=== PATIENT | female | born 1975 | race African-American/Black ===

== ENCOUNTER 2016-11-02 13:12 | Emergency (ER) | payer MEDICAID ==
[~2016-11-02] VITALS: Ht 170.2 cm; Wt 131.5 kg
[~2016-11-02 13:12] MED LIST: ALPR1TAB2 PO; DULO60CA45 PO; HUM10VIA5 SQ; LIRA0.6P SQ; LOSA100T3 PO; OXYC-164 PO; TOPI50TA PO
--- NOTE | 2016-11-02 13:23 | NUR ---
Presents self to ed dt vaginal bleeding x 10 days. Patient also reported lower abdominal discomfort. Patient is aao4, appears in no apparent distrress, respiration even and unlabored. Skin is warm to touch and non diaphoretic. Patient is afebrile. Per patient she uses 3-10 pads per day. VSsds
--- NOTE | 2016-11-02 13:44 | NUR ---
Urine sample sent to lab
[2016-11-02 13:51] LABS: BASOPHILS # (AUTO) 0.1 /CMM (0.0-0.2); BASOPHILS % (AUTO) 0.6 % (0.0-2.0); EOSINOPHILS # (AUTO) 0.2 /CMM (0.0-0.7); EOSINOPHILS % (AUTO) 1.7 % (0.0-6.0); HEMATOCRIT 38 % (33-45); HEMOGLOBIN 12.7 g/dL (11.5-14.8); LYMPHOCYTES % (AUTO) 31.4 % (20.0-44.0); MEAN CORPUSCULAR HEMOGLOBIN 27 PG (26.0-33.0); MEAN CORPUSCULAR HGB CONC 33 g/dl (31.0-36.0); MEAN CORPUSCULAR VOLUME 81 fL (82-100); MONOCYTES # (AUTO) 0.5 /CMM (0.1-1.30); MONOCYTES % (AUTO) 4.9 % (2.0-12.0); NEUTROPHILS # (AUTO) 5.9 /CMM (1.8-8.9); NEUTROPHILS % (AUTO) 61.4 % (43.0-81.0); PLATELET COUNT (AUTO) 320 /CMM (150-450); RDW COEFFICIENT OF VARIATION 15.8 (11.5-15.0); RED BLOOD CELL COUNT(AUTO) 4.68 MIL/uL (4.0-5.2); WHITE BLOOD COUNT (AUTO) 9.6 K/uL (4.3-11.0)
[2016-11-02 14:14] VITALS: BP 154/100
[2016-11-02 14:24] LABS: APPEARANCE,URINE CLOUDY (CLEAR); BILIRUBIN,URINE NEGATIVE (NEGATIVE); BLOOD, URINE 3+ Ery/uL (NEGATIVE); COLOR,URINE RED (YELLOW); KETONES,URINE NEGATIVE (NEGATIVE); LEUKOCYTE ESTERASE ,URINE NEGATIVE (NEGATIVE); NITRITE, URINE NEGATIVE (NEGATIVE); PH,URINE 5.5 (5.0-8.0); PREGNANCY TEST URINE QUAL NEGATIVE (NEGATIVE); PROTEIN,URINE 2+ mg/dl (NEGATIVE); UGLUCOSE NEGATIVE (NEGATIVE); UROBILINOGEN,URINE 0.2 EU/dL (0.2)
[2016-11-02 14:25] LABS: BACTERIA,URINE None seen /HPF (None Seen); RBC,URINE TOO NUMEROUS TO COUN /HPF (0-2); SQUAMOUS EPITHELIAL CELL,UR Few /HPF (None Seen); WBC,URINE 0-2 /HPF (0-3)
== END 2016-11-02 14:16 | disposition home or self-care (01) ==
LOC: ER 13:14
DX: N92.0 Excessive and frequent menstruation with regular cycle (principal); I10 Essential (primary) hypertension; E11.9 Type 2 diabetes mellitus without complications; F41.9 Anxiety disorder, unspecified; M79.7 Fibromyalgia; Z79.4 Long term (current) use of insulin; D50.0 Iron deficiency anemia secondary to blood loss (chronic); Z90.49 Acquired absence of other specified parts of digestive tract; Z88.1 Allergy status to other antibiotic agents; D21.9 Benign neoplasm of connective and other soft tissue, unspecified
CPT/HCPCS: 36415; 81000-TC; 84703-TC; 85025-TC; A4606; Z7610

== ENCOUNTER → 2018-01-22 | Emergency (ER) | payer MEDICAID ==
[~2018-01-22] VITALS: Ht 177.8 cm; Wt 140.6 kg
[~2018-01-22] MED LIST changes: +HYDROCODONE/APAP 5/325MG 1 EACH TABLET ONE; +HYDROCODONE/APAP 5/325MG 1 EACH TABLET PO ONE; +ONDANSETRON 4 MG TAB.RAPDIS ONE; +ONDANSETRON 4 MG TAB.RAPDIS SL ONE; -OXYC-164 PO; +OXYC-454 PO; +POTASSIUM CHLORIDE 20 MEQ TAB.PRT.SR PO ONE
[2018-01-22 11:45] VITALS: BP 155/97
[2018-01-22 12:30] LABS: BASOPHILS # (AUTO) 0.2 /CMM (0.0-0.2); BASOPHILS % (AUTO) 2.4 % (0.0-2.0); EOSINOPHILS % (AUTO) 3.4 % (0.0-6.0); HEMATOCRIT 37 % (33-45); HEMOGLOBIN 12.1 g/dL (11.5-14.8); LYMPHOCYTES # (AUTO) 3.4 /CMM (0.8-4.8); LYMPHOCYTES % (AUTO) 32.7 % (20.0-44.0); MEAN CORPUSCULAR HEMOGLOBIN 25 PG (26.0-33.0); MEAN CORPUSCULAR HGB CONC 32 g/dl (31.0-36.0); MEAN CORPUSCULAR VOLUME 79 fL (82-100); MONOCYTES # (AUTO) 0.5 /CMM (0.1-1.30); MONOCYTES % (AUTO) 5.1 % (2.0-12.0); NEUTROPHILS # (AUTO) 5.9 /CMM (1.8-8.9); NEUTROPHILS % (AUTO) 56.4 % (43.0-81.0); PLATELET COUNT (AUTO) 348 /CMM (150-450); RDW COEFFICIENT OF VARIATION 16.6 (11.5-15.0); RED BLOOD CELL COUNT(AUTO) 4.74 MIL/uL (4.0-5.2); WHITE BLOOD COUNT (AUTO) 10.4 K/uL (4.3-11.0)
[2018-01-22 12:32] LABS: APPEARANCE,URINE HAZY (CLEAR); BILIRUBIN,URINE Negative (NEGATIVE); BLOOD, URINE Trace-intact Ery/uL (NEGATIVE); COLOR,URINE Yellow (YELLOW); KETONES,URINE Trace (NEGATIVE); LEUKOCYTE ESTERASE ,URINE Small (NEGATIVE); NITRITE, URINE Negative (NEGATIVE); PH,URINE 5.5 (5.0-8.0); PROTEIN,URINE Trace mg/dl (NEGATIVE); UGLUCOSE 250 MG/DL mg/dL (NEGATIVE)
[2018-01-22 12:36] LABS: CALCIUM, SERUM 9.1 mg/dL (8.5-10.1); CREATININE 0.8 mg/dL (0.6-1.3); POTASSIUM 3.3 mmol/L (3.5-5.1)
[2018-01-22 12:37] LABS: BACTERIA,URINE Moderate /HPF (None Seen); RBC,URINE 0-2 /HPF (0-2)
[2018-01-22 12:38] LABS: SQUAMOUS EPITHELIAL CELL,UR Many /HPF (None Seen)
[2018-01-22 12:42] LABS: ALBUMIN 3.3 g/dL (3.4-5.0); BILIRUBIN,DIRECT 0.1 mg/dL (0.0-0.2); BILIRUBIN,TOTAL 0.3 mg/dL (0.2-1.0); TOTAL PROTEIN, SERUM 7.7 g/dL (6.4-8.2)
== END | disposition home or self-care (01) ==
LOC: ER 11:37
DX: R10.12 Left upper quadrant pain (principal); E66.01 Morbid (severe) obesity due to excess calories; E11.8 Type 2 diabetes mellitus with unspecified complications; F41.9 Anxiety disorder, unspecified; I10 Essential (primary) hypertension; E87.6 Hypokalemia; R74.8 Abnormal levels of other serum enzymes; D50.9 Iron deficiency anemia, unspecified; R11.2 Nausea with vomiting, unspecified; Z90.49 Acquired absence of other specified parts of digestive tract; Z79.4 Long term (current) use of insulin
CPT/HCPCS: 36415; 80048; 80076; 81001; 82962; 83690; 84703; 85025; 87086; 99284; A4606; Q0162; Z7610; 81000-TC

== ENCOUNTER 2019-04-04 12:35 | Emergency (ER) | payer MEDICAID ==
[~2019-04-04] VITALS: Ht 170.2 cm; Wt 136.1 kg
[~2019-04-04 12:35] MED LIST changes: -HYDROCODONE/APAP 5/325MG 1 EACH TABLET ONE; -HYDROCODONE/APAP 5/325MG 1 EACH TABLET PO ONE; -ONDANSETRON 4 MG TAB.RAPDIS ONE; -ONDANSETRON 4 MG TAB.RAPDIS SL ONE; -POTASSIUM CHLORIDE 20 MEQ TAB.PRT.SR PO ONE
[2019-04-04 12:41] VITALS: BP 176/105
--- NOTE | 2019-04-04 13:07 | NUR ---
VERONICA ZUÑIGA AT BEDSIDE FOR EVAL.
[2019-04-04] MEDS ORDERED: HYDROCODONE/APAP 10/325MG 1 EA TABLET ONE (13:20)
[2019-04-04] MEDS ORDERED: KETOROLAC TROMETHAMINE INJ 30 MG/ML VIAL ONE (13:20)
--- NOTE | 2019-04-04 13:23 | NUR ---
WE[employer] MARKETING MANAGER AT BEDSIDE FOR XRAY.
[2019-04-04] MEDS ORDERED: HYDROCODONE/APAP 10/325MG 1 EA TABLET PO ONE (13:30)
[2019-04-04] MEDS ORDERED: KETOROLAC TROMETHAMINE INJ 60 MG/2 ML VIAL IM ONE (13:30)
--- NOTE | 2019-04-04 15:05 | NUR ---
Patient discharged to home in stable condition. Written and verbal after care instructions given. Patient verbalizes understanding of instruction.
== END 2019-04-04 15:06 | disposition home or self-care (01) ==
LOC: ER 12:35
DX: M75.32 Calcific tendinitis of left shoulder (principal); M11.012 Hydroxyapatite deposition disease, left shoulder; M25.512 Pain in left shoulder; E11.9 Type 2 diabetes mellitus without complications; E66.01 Morbid (severe) obesity due to excess calories; I10 Essential (primary) hypertension; R42 Dizziness and giddiness; G47.30 Sleep apnea, unspecified; M79.7 Fibromyalgia; F41.9 Anxiety disorder, unspecified; D50.9 Iron deficiency anemia, unspecified; Z68.42 Body mass index [BMI] 45.0-49.9, adult; Z90.49 Acquired absence of other specified parts of digestive tract; Z98.890 Other specified postprocedural states; Z88.1 Allergy status to other antibiotic agents; Z79.899 Other long term (current) drug therapy
CPT/HCPCS: 73030; 96372; 99283; J1885

== ENCOUNTER 2019-04-11 08:43 | Emergency (ER) | payer MEDICAID ==
[~2019-04-11] VITALS: Ht 170.2 cm; Wt 138.3 kg
--- NOTE | 2019-04-11 08:55 | NUR ---
CHEST PAIN/PRESSURE, NAUSEA AND VOMITING SINCE 0500 . PRODUCTIVE COUGH X 2 MONTHS. PATIENT A/OX4, BREATHING EVEN AND UNLABORED, NO SOB NOTED. ATTACHED TO THE POLITICAL CARTOONIST.
[2019-04-11 09:19] LABS: BASOPHILS % (AUTO) 0.3 % (0.0-2.0); EOSINOPHILS % (AUTO) 1.4 % (0.0-6.0); HEMATOCRIT 35 % (33-45); HEMOGLOBIN 11.5 g/dL (11.5-14.8); LYMPHOCYTES # (AUTO) 2.5 /CMM (0.8-4.8); LYMPHOCYTES % (AUTO) 27.7 % (20.0-44.0); MEAN CORPUSCULAR HGB CONC 33 g/dl (31.0-36.0); MEAN CORPUSCULAR VOLUME 80 fL (82-100); MONOCYTES # (AUTO) 0.6 /CMM (0.1-1.30); MONOCYTES % (AUTO) 6.5 % (2.0-12.0); NEUTROPHILS # (AUTO) 5.8 /CMM (1.8-8.9); NEUTROPHILS % (AUTO) 64.1 % (43.0-81.0); PLATELET COUNT (AUTO) 297 /CMM (150-450); RED BLOOD CELL COUNT(AUTO) 4.33 MIL/uL (4.0-5.2); WHITE BLOOD COUNT (AUTO) 9.1 K/uL (4.3-11.0)
[2019-04-11] MEDS ORDERED: ONDANSETRON HCL/PF 4 MG/2 ML VIAL ONE (09:22)
[2019-04-11 09:28] LABS: CARBON DIOXIDE 34 mmol/L (21-32); CHLORIDE 101 mmol/L (98-107); CREATININE 0.8 mg/dL (0.6-1.3); GLUCOSE 334 mg/dL (74-106); POTASSIUM 3.9 mmol/L (3.5-5.1); SODIUM SERUM 136 mmol/L (136-145); UREA NITROGEN, BLOOD 12 mg/dL (7-18)
[2019-04-11] MEDS ORDERED: ONDANSETRON HCL/PF 4 MG/2 ML VIAL IV ONE (09:30)
[2019-04-11 09:45] LABS: B-TYPE NATRIURETIC PEPTIDE 23 PG/ML (0-125)
[2019-04-11] MEDS ORDERED: IV NS 0.9% 250 ML IV ONE (11:50)
[2019-04-11] MEDS ORDERED: IOHEXOL-300 100 ML VIAL IV ONE (11:50)
[2019-04-11 13:38] VITALS: BP 159/99
--- NOTE | 2019-04-11 13:38 | NUR ---
Patient discharged to home in stable condition. Written and verbal after care instructions given. Patient verbalizes understanding of instruction. IV removed. Catheter intact and site benign. Pressure and 4x4 applied to site. No bleeding noted.
== END 2019-04-11 13:39 | disposition home or self-care (01) ==
LOC: ER 08:51
DX: R07.89 Other chest pain (principal); R11.2 Nausea with vomiting, unspecified; I10 Essential (primary) hypertension; G47.30 Sleep apnea, unspecified; R42 Dizziness and giddiness; F41.9 Anxiety disorder, unspecified; E11.9 Type 2 diabetes mellitus without complications; M79.7 Fibromyalgia; D50.9 Iron deficiency anemia, unspecified; E66.01 Morbid (severe) obesity due to excess calories; Z68.42 Body mass index [BMI] 45.0-49.9, adult; Z90.49 Acquired absence of other specified parts of digestive tract; Z88.1 Allergy status to other antibiotic agents; Z79.899 Other long term (current) drug therapy
CPT/HCPCS: 36415; 71045; 74177; 80048; 83880; 84484; 84703; 85025; 85378; 93005 ×2; 96374; 99284; J2405; J7050; Q9967

== ENCOUNTER 2019-04-12 09:56 | Emergency (ER) | payer MEDICAID ==
[~2019-04-12] VITALS: Ht 170.2 cm; Wt 136.1 kg
--- NOTE | 2019-04-12 10:03 | NUR ---
PT BIB SELF C/O CHEST PRESSURE NON RADIATING STARTED AT 0730H. PT IS AAOX4, NOT IN RESPIRATORY DISTRESS, HOOKED TO MONITOR, KEPT RESTED AND COMFORTABLE, WILL CONTINUE TO MONITOR.
--- NOTE | 2019-04-12 10:09 | NUR ---
TECH AT BEDSIDE FOR EKG.
[2019-04-12 10:24] LABS: BASOPHILS % (AUTO) 0.2 % (0.0-2.0); EOSINOPHILS % (AUTO) 1.2 % (0.0-6.0); HEMATOCRIT 34 % (33-45); HEMOGLOBIN 11.3 g/dL (11.5-14.8); LYMPHOCYTES # (AUTO) 2.9 /CMM (0.8-4.8); LYMPHOCYTES % (AUTO) 27.8 % (20.0-44.0); MEAN CORPUSCULAR HGB CONC 33 g/dl (31.0-36.0); MEAN CORPUSCULAR VOLUME 80 fL (82-100); MONOCYTES # (AUTO) 0.6 /CMM (0.1-1.30); MONOCYTES % (AUTO) 5.7 % (2.0-12.0); NEUTROPHILS # (AUTO) 6.8 /CMM (1.8-8.9); NEUTROPHILS % (AUTO) 65.1 % (43.0-81.0); PLATELET COUNT (AUTO) 311 /CMM (150-450); RED BLOOD CELL COUNT(AUTO) 4.29 MIL/uL (4.0-5.2); WHITE BLOOD COUNT (AUTO) 10.4 K/uL (4.3-11.0)
[2019-04-12] MEDS ORDERED: MAG HYDROX/AL HYDROX/SIMETH 30 ML UDC ONE (10:25)
[2019-04-12] MEDS ORDERED: LIDOCAINE VISCOUS 2% UD 15 ML UDC ONE (10:25)
[2019-04-12] MEDS ORDERED: ONDANSETRON HCL/PF 4 MG/2 ML VIAL ONE (10:25)
[2019-04-12] MEDS ORDERED: MAG HYDROX/AL HYDROX/SIMETH 30 ML UDC PO ONE (10:30)
[2019-04-12] MEDS ORDERED: LIDOCAINE VISCOUS 2% UD 15 ML UDC MM ONE (10:30)
[2019-04-12] MEDS ORDERED: ONDANSETRON HCL/PF 4 MG/2 ML VIAL IVP ONE (10:30)
[2019-04-12 10:40] LABS: CALCIUM, SERUM 8.9 mg/dL (8.5-10.1); CREATININE 0.8 mg/dL (0.6-1.3); POTASSIUM 4.1 mmol/L (3.5-5.1)
[2019-04-12 10:45] LABS: BILIRUBIN,DIRECT 0.1 mg/dL (0.0-0.2); BILIRUBIN,TOTAL 0.3 mg/dL (0.2-1.0); TOTAL PROTEIN, SERUM 7.4 g/dL (6.4-8.2)
--- NOTE | 2019-04-12 12:13 | NUR ---
IV removed. Catheter intact and site benign. Pressure and 4x4 applied to site. No bleeding noted.Patient discharged to home in stable condition. Written and verbal after care instructions given. Patient verbalizes understanding of instruction.
[2019-04-12 12:14] VITALS: BP 152/88
== END 2019-04-12 12:14 | disposition home or self-care (01) ==
LOC: ER 09:56
DX: R10.9 Unspecified abdominal pain (principal); R11.2 Nausea with vomiting, unspecified; R07.89 Other chest pain; R42 Dizziness and giddiness; I10 Essential (primary) hypertension; G47.30 Sleep apnea, unspecified; E11.9 Type 2 diabetes mellitus without complications; M79.7 Fibromyalgia; F41.9 Anxiety disorder, unspecified; D50.9 Iron deficiency anemia, unspecified; Z90.49 Acquired absence of other specified parts of digestive tract; Z88.1 Allergy status to other antibiotic agents; Z98.890 Other specified postprocedural states; Z79.899 Other long term (current) drug therapy
CPT/HCPCS: 36415; 80048; 80076; 83690; 85025; 93005 ×2; 96374; 99284; J2405

== ENCOUNTER 2019-06-17 08:40 | Emergency (ER) | payer MEDICAID ==
[~2019-06-17] VITALS: Ht 167.6 cm; Wt 133.8 kg
--- NOTE | 2019-06-17 09:10 | NUR ---
patient bibhusband c/o "Been having Abdominal pain (on/off-constant now)nausea/vomiting last 3days now feel weak cant keep anything down". on room air, breathing evenly and unlabored, connected tothe monitor and pulse ox. kept comfortable, will continue to monitor accordingly.
--- NOTE | 2019-06-17 09:15 | NUR ---
Blood drawned and urine collected and sent to lab.
[2019-06-17] MEDS ORDERED: ONDANSETRON HCL/PF 4 MG/2 ML VIAL ONE (09:25)
[2019-06-17 09:27] LABS: BASOPHILS # (AUTO) 0.1 /CMM (0.0-0.2); BASOPHILS % (AUTO) 0.6 % (0.0-2.0); EOSINOPHILS % (AUTO) 1.1 % (0.0-6.0); HEMATOCRIT 38 % (33-45); LYMPHOCYTES # (AUTO) 3.3 /CMM (0.8-4.8); LYMPHOCYTES % (AUTO) 30.9 % (20.0-44.0); MEAN CORPUSCULAR HGB CONC 34 g/dl (31.0-36.0); MEAN CORPUSCULAR VOLUME 80 fL (82-100); MONOCYTES # (AUTO) 0.6 /CMM (0.1-1.30); MONOCYTES % (AUTO) 5.1 % (2.0-12.0); NEUTROPHILS # (AUTO) 6.7 /CMM (1.8-8.9); NEUTROPHILS % (AUTO) 62.3 % (43.0-81.0); PLATELET COUNT (AUTO) 361 /CMM (150-450); RED BLOOD CELL COUNT(AUTO) 4.81 MIL/uL (4.0-5.2); WHITE BLOOD COUNT (AUTO) 10.8 K/uL (4.3-11.0)
[2019-06-17 09:29] LABS: APPEARANCE,URINE Clear (CLEAR); BILIRUBIN,URINE Negative (NEGATIVE); BLOOD, URINE Negative Ery/uL (NEGATIVE); COLOR,URINE Yellow (YELLOW); KETONES,URINE 15 (NEGATIVE); LEUKOCYTE ESTERASE ,URINE Negative (NEGATIVE); NITRITE, URINE Negative (NEGATIVE); PH,URINE 5.5 (5.0-8.0); PROTEIN,URINE Negative (NEGATIVE); UGLUCOSE >=1000 mg/dL (NEGATIVE); UROBILINOGEN,URINE 0.2 EU/dL (0.2)
[2019-06-17] MEDS ORDERED: IV NS 0.9% 1,000 ML BAG IV ONE (09:30)
[2019-06-17] MEDS ORDERED: ONDANSETRON HCL/PF 4 MG/2 ML VIAL IVP ONE (09:30)
[2019-06-17 09:31] LABS: BACTERIA,URINE Rare /HPF (None Seen); RBC,URINE 0-2 /HPF (0-2); SQUAMOUS EPITHELIAL CELL,UR Few /HPF (None Seen)
[2019-06-17 09:33] LABS: CALCIUM, SERUM 9.9 mg/dL (8.5-10.1); POTASSIUM 4.1 mmol/L (3.5-5.1)
[2019-06-17 09:39] LABS: ALBUMIN 3.6 g/dL (3.4-5.0); BILIRUBIN,DIRECT 0.1 mg/dL (0.0-0.2); BILIRUBIN,TOTAL 0.6 mg/dL (0.2-1.0); TOTAL PROTEIN, SERUM 8.3 g/dL (6.4-8.2)
[2019-06-17 11:36] VITALS: BP 113/81
--- NOTE | 2019-06-17 11:37 | NUR ---
Patient discharged to home in stable condition. Written and verbal after care instructions given. Patient verbalizes understanding of instruction.IV removed. Catheter intact and site benign. Pressure and 4x4 applied to site. No bleeding noted.
== END 2019-06-17 11:37 | disposition home or self-care (01) ==
LOC: ER 08:40
DX: R10.31 Right lower quadrant pain (principal); R11.2 Nausea with vomiting, unspecified; R19.7 Diarrhea, unspecified; I10 Essential (primary) hypertension; E11.9 Type 2 diabetes mellitus without complications; F41.9 Anxiety disorder, unspecified; M79.7 Fibromyalgia; D50.9 Iron deficiency anemia, unspecified; Z90.49 Acquired absence of other specified parts of digestive tract; Z98.890 Other specified postprocedural states; Z88.1 Allergy status to other antibiotic agents; Z79.899 Other long term (current) drug therapy
CPT/HCPCS: 36415; 74176; 80048; 80076; 81001; 83690; 84703; 85025; 96361; 96374; 99284; J2405; J7030; 81000-TC

== ENCOUNTER 2019-07-07 12:26 | Emergency (ER) | payer MEDICAID ==
[~2019-07-07] VITALS: Ht 170.2 cm; Wt 133.4 kg
--- NOTE | 2019-07-07 12:27 | NUR ---
PT BIB SELF C/O WORSENING ABDOMINAL PAIN/NAUSEA AND VOMITING SINCE LAST NIGHT, PT IS AAOX4, NOT IN RESPIRATORY DISTRESS, HOOKED TO MONITOR, KEPT RESTED AND COMFORTABLE, WILL CONTINUE TO MONITOR.
--- NOTE | 2019-07-07 12:40 | NUR ---
URINE SPECIMEN COLLECTED AND SENT TO LAB.
--- NOTE | 2019-07-07 12:43 | NUR ---
SEEN AND EXAMINED BY DR. SEAY.
[2019-07-07] MEDS ORDERED: ONDANSETRON HCL/PF 4 MG/2 ML VIAL ONE (12:47)
[2019-07-07] MEDS ORDERED: MORPHINE SULFATE INJ 4 MG/ML DISP.SYRIN ONE ×2 (12:47→14:27)
[2019-07-07 12:55] LABS: APPEARANCE,URINE Clear (CLEAR); BILIRUBIN,URINE Negative (NEGATIVE); BLOOD, URINE Negative Ery/uL (NEGATIVE); COLOR,URINE Yellow (YELLOW); KETONES,URINE Negative (NEGATIVE); LEUKOCYTE ESTERASE ,URINE Negative (NEGATIVE); NITRITE, URINE Negative (NEGATIVE); PROTEIN,URINE Negative (NEGATIVE); UGLUCOSE >=1000 mg/dL (NEGATIVE); UROBILINOGEN,URINE 0.2 EU/dL (0.2)
--- NOTE | 2019-07-07 12:55 | NUR ---
IV LINE ESTABLISHED, BLOOD DRAWN AND SENT TO LAB.
[2019-07-07 12:58] LABS: BASOPHILS # (AUTO) 0.1 /CMM (0.0-0.2); BASOPHILS % (AUTO) 0.8 % (0.0-2.0); EOSINOPHILS % (AUTO) 0.9 % (0.0-6.0); HEMATOCRIT 37 % (33-45); HEMOGLOBIN 12.5 g/dL (11.5-14.8); LYMPHOCYTES # (AUTO) 2.9 /CMM (0.8-4.8); MEAN CORPUSCULAR HGB CONC 34 g/dl (31.0-36.0); MEAN CORPUSCULAR VOLUME 81 fL (82-100); MONOCYTES # (AUTO) 0.5 /CMM (0.1-1.30); MONOCYTES % (AUTO) 4.4 % (2.0-12.0); NEUTROPHILS # (AUTO) 6.8 /CMM (1.8-8.9); NEUTROPHILS % (AUTO) 65.9 % (43.0-81.0); PLATELET COUNT (AUTO) 358 /CMM (150-450); RED BLOOD CELL COUNT(AUTO) 4.62 MIL/uL (4.0-5.2); WHITE BLOOD COUNT (AUTO) 10.4 K/uL (4.3-11.0)
[2019-07-07] MEDS ORDERED: ONDANSETRON HCL/PF 4 MG/2 ML VIAL IVP ONE (13:00)
[2019-07-07] MEDS ORDERED: MORPHINE SULFATE INJ 2 MG/ML DISP.SYRIN IV ONE ×2 (13:00→14:30)
--- NOTE | 2019-07-07 13:16 | NUR ---
PT IS WHEELED TO CT SCAN [facility]IA [facility].
[2019-07-07 13:25] LABS: ALANINE AMINOTRANSFERASE 28 U/L (12-78); ALBUMIN 3.2 g/dL (3.4-5.0); ALKALINE PHOSPHATASE 220 U/L (46-116); ASPARTATE AMINOTRANSFERASE 18 U/L (15-37); BILIRUBIN,DIRECT 0.1 mg/dL (0.0-0.2); BILIRUBIN,TOTAL 0.4 mg/dL (0.2-1.0); CALCIUM, SERUM 9.9 mg/dL (8.5-10.1); CARBON DIOXIDE 33 mmol/L (21-32); CHLORIDE 95 mmol/L (98-107); CREATININE 1.1 mg/dL (0.6-1.3); LIPASE 100 U/L (73-393); POTASSIUM 4.2 mmol/L (3.5-5.1); SODIUM SERUM 133 mmol/L (136-145); TOTAL PROTEIN, SERUM 7.8 g/dL (6.4-8.2); UREA NITROGEN, BLOOD 15 mg/dL (7-18)
[2019-07-07 13:26] LABS: GLUCOSE 401 mg/dL (74-106)
[2019-07-07] MEDS ORDERED: INSULIN REGULAR, HUMAN 100 UNIT/ML 10 ML VIAL ONE (14:27)
[2019-07-07] MEDS ORDERED: INSULIN REGULAR, HUMAN 100 UNIT/ML 10 ML VIAL IV ONE (14:30)
[2019-07-07] MEDS ORDERED: PIPERACILLIN /TAZOBACTAM 3.375 G in IV D5W 50 ML IV ONE (14:30)
--- NOTE | 2019-07-07 15:17 | NUR ---
IV removed. Catheter intact and site benign. Pressure and 4x4 applied to site. No bleeding noted. Patient discharged to home in stable condition. Written and verbal after care instructions given. Patient verbalizes understanding of instruction.
[2019-07-07 15:18] VITALS: BP 133/88
== END 2019-07-07 15:19 | disposition home or self-care (01) ==
LOC: ER 12:28
DX: L03.311 Cellulitis of abdominal wall (principal); R11.2 Nausea with vomiting, unspecified; I10 Essential (primary) hypertension; E11.9 Type 2 diabetes mellitus without complications; F41.9 Anxiety disorder, unspecified; M79.7 Fibromyalgia; D50.9 Iron deficiency anemia, unspecified; Z90.49 Acquired absence of other specified parts of digestive tract; Z98.890 Other specified postprocedural states; Z88.8 Allergy status to other drugs, medicaments and biological substances; Z79.899 Other long term (current) drug therapy; Z79.4 Long term (current) use of insulin
CPT/HCPCS: 36415; 74176; 80048; 80076; 81001; 83690; 84484; 85025; 93005; 96372; 96374; 96375; 96376; 99285; J1815; J2270 ×2; J2405; J2543; J7060; 81000-TC

== ENCOUNTER 2019-07-10 12:03 | Emergency (ER) | payer SELFPAY ==
[~2019-07-10] VITALS: Ht 165.1 cm; Wt 129.3 kg
--- NOTE | 2019-07-10 12:30 | NUR ---
EPIGASTRIC PAIN X 1 WEEK. PATIENT A/OX4, BREATHING EVEN AND UNLABORED, NO SOB NOTED, NEEDS ATTENDED. ATTACHED TO THE TECHNICAL STENOGRAPHER.
[2019-07-10] MEDS ORDERED: MORPHINE SULFATE INJ 4 MG/ML DISP.SYRIN ONE (12:36)
[2019-07-10] MEDS ORDERED: FAMOTIDINE/PF INJ 20 MG/2 ML VIAL IV ONE ×2 (12:36→13:00)
[2019-07-10] MEDS ORDERED: ONDANSETRON HCL/PF 4 MG/2 ML VIAL ONE (12:36)
[2019-07-10 12:51] LABS: BASOPHILS # (AUTO) 0.1 /CMM (0.0-0.2); BASOPHILS % (AUTO) 1.4 % (0.0-2.0); EOSINOPHILS % (AUTO) 1.3 % (0.0-6.0); HEMATOCRIT 37 % (33-45); HEMOGLOBIN 12.5 g/dL (11.5-14.8); LYMPHOCYTES # (AUTO) 4.2 /CMM (0.8-4.8); LYMPHOCYTES % (AUTO) 40.9 % (20.0-44.0); MEAN CORPUSCULAR HGB CONC 34 g/dl (31.0-36.0); MEAN CORPUSCULAR VOLUME 79 fL (82-100); MONOCYTES # (AUTO) 0.6 /CMM (0.1-1.30); MONOCYTES % (AUTO) 5.8 % (2.0-12.0); NEUTROPHILS # (AUTO) 5.2 /CMM (1.8-8.9); NEUTROPHILS % (AUTO) 50.6 % (43.0-81.0); PLATELET COUNT (AUTO) 383 /CMM (150-450); RED BLOOD CELL COUNT(AUTO) 4.67 MIL/uL (4.0-5.2); WHITE BLOOD COUNT (AUTO) 10.2 K/uL (4.3-11.0)
[2019-07-10 12:59] LABS: CALCIUM, SERUM 9.7 mg/dL (8.5-10.1); CREATININE 1.1 mg/dL (0.6-1.3); POTASSIUM 3.7 mmol/L (3.5-5.1)
[2019-07-10] MEDS ORDERED: ONDANSETRON HCL/PF 4 MG/2 ML VIAL IVP ONE (13:00)
[2019-07-10] MEDS ORDERED: MORPHINE SULFATE INJ 2 MG/ML DISP.SYRIN IV ONE (13:00)
[2019-07-10 13:04] LABS: ALBUMIN 3.4 g/dL (3.4-5.0); BILIRUBIN,DIRECT 0.1 mg/dL (0.0-0.2); BILIRUBIN,TOTAL 0.4 mg/dL (0.2-1.0)
--- NOTE | 2019-07-10 13:38 | NUR ---
TAKEN TO CT.
--- NOTE | 2019-07-10 14:24 | NUR ---
AMBULATORY WITH STEADY GAIT, DENIES PAIN AT THIS TIME. IV removed. Catheter intact and site benign. Pressure and 4x4 applied to site. No bleeding noted.Patient discharged to home in stable condition. Written and verbal after care instructions given. Patient verbalizes understanding of instruction.
[2019-07-10 14:25] VITALS: BP 112/64
== END 2019-07-10 14:25 | disposition home or self-care (01) ==
LOC: ER 12:15
DX: R10.84 Generalized abdominal pain (principal); R42 Dizziness and giddiness; I10 Essential (primary) hypertension; G47.30 Sleep apnea, unspecified; E11.9 Type 2 diabetes mellitus without complications; D50.9 Iron deficiency anemia, unspecified; E66.9 Obesity, unspecified; Z68.42 Body mass index [BMI] 45.0-49.9, adult; Z90.49 Acquired absence of other specified parts of digestive tract; Z98.890 Other specified postprocedural states; Z88.1 Allergy status to other antibiotic agents; Z79.899 Other long term (current) drug therapy
CPT/HCPCS: 36415; 74021; 80048; 80076; 83690; 84702; 85025; 96374; 96375; 99284; J2270; J2405; J3490

== ENCOUNTER 2019-07-12 04:03 | Emergency (ER) | payer SELFPAY ==
[~2019-07-12] VITALS: Ht 167.6 cm; Wt 132.9 kg
--- NOTE | 2019-07-12 04:05 | NUR ---
PT CAME INTO THE ED C/O ABDOMINAL PAIN WITH BLOATING, N/V. WAS SEEN HERE 2X THIS WEEK. PT AAOX4, NO ACUTE DISTRESS NOTED AT THIS TIME. CONNECTED TO THE MONITOR AND POX. AWAITING FOR MD FLORES
[2019-07-12] MEDS ORDERED: ONDANSETRON HCL/PF 4 MG/2 ML VIAL ONE (05:15)
[2019-07-12] MEDS ORDERED: MORPHINE SULFATE INJ 4 MG/ML DISP.SYRIN ONE (05:16)
[2019-07-12 05:20] LABS: APPEARANCE,URINE Clear (CLEAR); BILIRUBIN,URINE Negative (NEGATIVE); BLOOD, URINE Negative Ery/uL (NEGATIVE); COLOR,URINE Yellow (YELLOW); KETONES,URINE Negative (NEGATIVE); LEUKOCYTE ESTERASE ,URINE Negative (NEGATIVE); NITRITE, URINE Negative (NEGATIVE); PROTEIN,URINE Negative (NEGATIVE); UGLUCOSE >=1000 mg/dL (NEGATIVE); UROBILINOGEN,URINE 0.2 EU/dL (0.2)
[2019-07-12 05:30] LABS: BASOPHILS # (AUTO) 0.1 /CMM (0.0-0.2); BASOPHILS % (AUTO) 0.8 % (0.0-2.0); EOSINOPHILS % (AUTO) 1.5 % (0.0-6.0); HEMATOCRIT 36 % (33-45); LYMPHOCYTES # (AUTO) 3.3 /CMM (0.8-4.8); LYMPHOCYTES % (AUTO) 35.3 % (20.0-44.0); MEAN CORPUSCULAR HGB CONC 33 g/dl (31.0-36.0); MEAN CORPUSCULAR VOLUME 81 fL (82-100); MONOCYTES # (AUTO) 0.6 /CMM (0.1-1.30); MONOCYTES % (AUTO) 6.4 % (2.0-12.0); NEUTROPHILS # (AUTO) 5.3 /CMM (1.8-8.9); PLATELET COUNT (AUTO) 343 /CMM (150-450); RED BLOOD CELL COUNT(AUTO) 4.46 MIL/uL (4.0-5.2); WHITE BLOOD COUNT (AUTO) 9.5 K/uL (4.3-11.0)
[2019-07-12] MEDS ORDERED: IV NS 0.9% 500 ML BAG IV ONE (05:30)
[2019-07-12] MEDS ORDERED: MORPHINE SULFATE INJ 2 MG/ML DISP.SYRIN IV ONE (05:30)
[2019-07-12] MEDS ORDERED: ONDANSETRON HCL/PF 4 MG/2 ML VIAL IVP ONE (05:30)
[2019-07-12 05:37] LABS: CALCIUM, SERUM 9.2 mg/dL (8.5-10.1); CREATININE 0.9 mg/dL (0.6-1.3); POTASSIUM 3.9 mmol/L (3.5-5.1)
[2019-07-12 05:38] LABS: BACTERIA,URINE None seen /HPF (None Seen); RBC,URINE 0-2 /HPF (0-2); SQUAMOUS EPITHELIAL CELL,UR Moderate /HPF (None Seen); WBC,URINE 0-2 /HPF (0-3); YEAST,URINE Few /HPF (None Seen)
[2019-07-12 05:43] LABS: BILIRUBIN,TOTAL 0.1 mg/dL (0.2-1.0); TOTAL PROTEIN, SERUM 7.3 g/dL (6.4-8.2)
[2019-07-12] MEDS ORDERED: LIDOCAINE VISCOUS 2% UD 15 ML UDC MM ONE (06:30)
[2019-07-12] MEDS ORDERED: HYDROMORPHONE INJ 0.5 MG/0.5 ML SYRINGE IV ONE (06:30)
[2019-07-12] MEDS ORDERED: MAG HYDROX/AL HYDROX/SIMETH 30 ML UDC PO ONE (06:30)
[2019-07-12] MEDS ORDERED: LIDOCAINE VISCOUS 2% UD 15 ML UDC ONE (06:33)
[2019-07-12] MEDS ORDERED: MAG HYDROX/AL HYDROX/SIMETH 30 ML UDC ONE (06:33)
[2019-07-12] MEDS ORDERED: HYDROMORPHONE 1 MG/1 ML DISP.SYRIN ONE (06:34)
[2019-07-12 07:12] VITALS: BP 106/89
== END 2019-07-12 07:13 | disposition home or self-care (01) ==
LOC: ER 04:04
DX: R10.13 Epigastric pain (principal); I10 Essential (primary) hypertension; E11.9 Type 2 diabetes mellitus without complications; M79.7 Fibromyalgia; F41.9 Anxiety disorder, unspecified; D50.9 Iron deficiency anemia, unspecified; Z98.890 Other specified postprocedural states; Z90.49 Acquired absence of other specified parts of digestive tract; Z88.8 Allergy status to other drugs, medicaments and biological substances; Z79.899 Other long term (current) drug therapy; Z79.4 Long term (current) use of insulin
CPT/HCPCS: 36415; 80048; 80076; 81001; 83690; 85025; 96374; 96375; 99284; J1170; J2270; J2405; J7040; 81000-TC

== ENCOUNTER 2019-07-18 08:06 | Emergency (ER) | payer MEDICAID ==
[~2019-07-18] VITALS: Ht 162.6 cm; Wt 154.2 kg
[2019-07-18 08:20] VITALS: BP 133/72
--- NOTE | 2019-07-18 08:23 | NUR ---
URINE COLLECTED VIA CLEAN CATCH AND SENT TO LAB
--- NOTE | 2019-07-18 08:31 | NUR ---
AT BEDSIDE FOR EVAL.
[2019-07-18] MEDS ORDERED: MORPHINE SULFATE INJ 4 MG/ML DISP.SYRIN ONE (08:39)
[2019-07-18] MEDS ORDERED: ONDANSETRON 4 MG TAB.RAPDIS ONE (08:40)
--- NOTE | 2019-07-18 08:47 | NUR ---
Patient discharged to home in stable condition. Written and verbal after care instructions given. Patient verbalizes understanding of instruction.
[2019-07-18] MEDS ORDERED: ONDANSETRON 4 MG TAB.RAPDIS SL ONE (09:00)
[2019-07-18] MEDS ORDERED: MORPHINE SULFATE INJ 2 MG/ML DISP.SYRIN IM ONE (09:00)
== END 2019-07-18 08:49 | disposition home or self-care (01) ==
LOC: ER 08:08
DX: R10.13 Epigastric pain (principal); R42 Dizziness and giddiness; I10 Essential (primary) hypertension; E11.9 Type 2 diabetes mellitus without complications; D50.9 Iron deficiency anemia, unspecified; Z90.49 Acquired absence of other specified parts of digestive tract; Z98.890 Other specified postprocedural states; Z88.1 Allergy status to other antibiotic agents; Z79.899 Other long term (current) drug therapy
CPT/HCPCS: 96372; 99283; J2270; Q0162

== ENCOUNTER 2020-10-24 01:32 | Emergency (ER) | payer MEDICAID ==
[~2020-10-24] VITALS: Ht 168.9 cm; Wt 137.0 kg
[~2020-10-24 01:32] MED LIST changes: -OXYC-454 PO; +OXYC1TAB12 PO
--- NOTE | 2020-10-24 01:45 | NUR ---
PATIENT TO ER BED 10 BIB RA FROM HOME C/O LOWER BACK PAIN. PATIENT STATES THAT SHE RECENTLY HAD BACK SURGERY. PATIENT C/O BILATERAL LEG PAIN. PATIENT HAS A BECKETT CATHETER ON ARRIVAL. PATIENT IS ALERT AND ORIENTED x4. DENIES SHORTNESS OF BREATH. CONNECTED TO MONITOR.
[2020-10-24] MEDS ORDERED: DEXAMETHASONE SOD PHOSPHATE 4 MG/ML VIAL IM ONE (02:00)
[2020-10-24] MEDS ORDERED: CARISOPRODOL 350 MG TABLET PO ONE (02:00)
[2020-10-24] MEDS ORDERED: HYDROMORPHONE 1 MG/1 ML DISP.SYRIN IM ONE (02:00)
[2020-10-24] MEDS ORDERED: DEXAMETHASONE SOD PHOSPHATE 10 MG/ML VIAL ONE (02:07)
[2020-10-24] MEDS ORDERED: HYDROMORPHONE 1 MG/1 ML DISP.SYRIN ONE (02:07)
[2020-10-24] MEDS ORDERED: CARISOPRODOL 350 MG TABLET ONE (02:07)
--- NOTE | 2020-10-24 02:41 | NUR ---
BROUGHT BACK FROM CT
--- NOTE | 2020-10-24 04:22 | NUR ---
CALLED [facility], STATES THAT THEY DO NOT HAVE ENOUGH MANPOWER AND THE BARIATRIC GURNEY.
--- NOTE | 2020-10-24 04:31 | NUR ---
CALLED [facility], NO AVAILABILITY.
--- NOTE | 2020-10-24 04:33 | NUR ---
CALLED [facility], 1100 ETA
[2020-10-24] MEDS ORDERED: MORPHINE SULFATE INJ 10 MG/ML DISP.SYRIN IV ONE (05:00)
[2020-10-24] MEDS ORDERED: MORPHINE SULFATE INJ 2 MG/ML DISP.SYRIN IM ONE (05:00)
[2020-10-24] MEDS ORDERED: MORPHINE SULFATE INJ 4 MG/ML DISP.SYRIN ONE (05:01)
--- NOTE | 2020-10-24 06:26 | NUR ---
PATIENT'S STATES THAT HE WILL ARRANGE OWN TRANSPORT.
--- NOTE | 2020-10-24 06:36 | NUR ---
Patient discharged to home in stable condition. Written and verbal after care instructions given. Patient verbalizes understanding of instruction.
[2020-10-24 06:43] VITALS: BP 134/84
== END 2020-10-24 06:45 | disposition home or self-care (01) ==
LOC: ER 01:35
DX: G89.29 Other chronic pain (principal); M54.5 Low back pain; I10 Essential (primary) hypertension; E11.9 Type 2 diabetes mellitus without complications; F41.9 Anxiety disorder, unspecified; M79.7 Fibromyalgia; D50.9 Iron deficiency anemia, unspecified; Z90.49 Acquired absence of other specified parts of digestive tract; Z98.890 Other specified postprocedural states; Z88.1 Allergy status to other antibiotic agents; Z79.899 Other long term (current) drug therapy; Z79.4 Long term (current) use of insulin
CPT/HCPCS: 72131; 96372 ×2; 99285; J1100; J1170; J2270

== ENCOUNTER 2024-05-05 19:28 | Emergency (ER) | payer OTHER, MEDICAID ==
[~2024-05-05] VITALS: Ht 167.6 cm; Wt 145.1 kg
[2024-05-05 20:02] LABS: BASOPHILS # (AUTO) 0.1 K/uL (0.0-0.2); BASOPHILS % (AUTO) 0.7 % (0.0-2.0); EOSINOPHILS # (AUTO) 0.2 K/uL (0.0-0.7); EOSINOPHILS % (AUTO) 1.7 % (0.0-6.0); HEMATOCRIT 35 % (33-45); HEMOGLOBIN 11.8 g/dL (11.5-14.8); LYMPHOCYTES # (AUTO) 3.6 K/uL (0.8-4.8); MEAN CORPUSCULAR HEMOGLOBIN 26 PG (26.0-33.0); MEAN CORPUSCULAR HGB CONC 34 g/dl (31.0-36.0); MEAN CORPUSCULAR VOLUME 78 fL (82-100); MONOCYTES # (AUTO) 0.6 K/uL (0.1-1.30); MONOCYTES % (AUTO) 5.9 % (2.0-12.0); NEUTROPHILS % (AUTO) 53.7 % (43.0-81.0); PLATELET COUNT (AUTO) 321 K/uL (150-450); RED CELL DISTRIBUTION WIDTH 17.4 % (11.5-15.0); WHITE BLOOD COUNT (AUTO) 9.4 K/uL (4.3-11.0)
[2024-05-05 20:28] LABS: CALCIUM, SERUM 9.6 mg/dL (8.5-10.1); CARBON DIOXIDE 31 mmol/L (21-32); CHLORIDE 101 mmol/L (98-107); CREATININE 0.8 mg/dL (0.6-1.3); GLUCOSE 130 mg/dL (74-106); POTASSIUM 3.9 mmol/L (3.5-5.1); SODIUM SERUM 141 mmol/L (136-145); UREA NITROGEN, BLOOD 8 mg/dL (7-18)
[2024-05-05] MEDS ORDERED: LIDOCAINE VISCOUS 2% UD 15 ML UDC ONE (20:55)
[2024-05-05] MEDS ORDERED: MAG HYDROX/AL HYDROX/SIMETH 30 ML UDC ONE (20:56)
[2024-05-05] MEDS ORDERED: FAMOTIDINE (20 MG) 20 MG TABLET ONE (20:56)
[2024-05-05] MEDS ORDERED: ONDANSETRON 4 MG TAB.RAPDIS ONE (20:56)
[2024-05-05 20:58] LABS: APPEARANCE,URINE CLEAR (CLEAR); BILIRUBIN,URINE NEGATIVE (NEGATIVE); BLOOD, URINE NEGATIVE Ery/uL (NEGATIVE); COLOR,URINE YELLOW (YELLOW); KETONES,URINE NEGATIVE (NEGATIVE); LEUKOCYTE ESTERASE ,URINE NEGATIVE (NEGATIVE); NITRITE, URINE POSITIVE (NEGATIVE); PH,URINE 7.5 (5.0-8.0); PROTEIN,URINE NEGATIVE (NEGATIVE); UGLUCOSE NEGATIVE (NEGATIVE); UROBILINOGEN,URINE 0.2 EU/dL (0.2)
[2024-05-05] MEDS: LIDOCAINE VISCOUS 2% UD 15 ML UDC MM ONE (21:04)
[2024-05-05] MEDS: MAG HYDROX/AL HYDROX/SIMETH 30 ML UDC PO ONE (21:04)
[2024-05-05] MEDS: FAMOTIDINE (20 MG) 20 MG TABLET PO ONE (21:04)
[2024-05-05] MEDS: ONDANSETRON 4 MG TAB.RAPDIS SL ONE (21:04)
[2024-05-05 21:09] LABS: ADD URINE CULTURE YES; BACTERIA,URINE Many /HPF (None Seen); RBC,URINE 0-2 /HPF (0-2); SQUAMOUS EPITHELIAL CELL,UR Few /HPF (None Seen); WBC,URINE 0-2 /HPF (0-3)
[2024-05-05] MEDS ORDERED: CEFP200T14 PO (21:35)
[2024-05-05 21:57] VITALS: BP 155/80; TEMP 98.3; O2SAT 95
== END 2024-05-05 22:14 | disposition home or self-care (01) ==
LOC: ER 19:30
DX: R07.89 Other chest pain (principal); K21.9 Gastro-esophageal reflux disease without esophagitis; N39.0 Urinary tract infection, site not specified; E11.43 Type 2 diabetes mellitus with diabetic autonomic (poly)neuropathy; F41.9 Anxiety disorder, unspecified; G47.30 Sleep apnea, unspecified; G89.29 Other chronic pain; I10 Essential (primary) hypertension; K31.84 Gastroparesis; M79.7 Fibromyalgia; Z79.4 Long term (current) use of insulin; Z79.85 Long-term (current) use of injectable non-insulin antidiabetic drugs; Z79.899 Other long term (current) drug therapy; Z88.1 Allergy status to other antibiotic agents; Z90.49 Acquired absence of other specified parts of digestive tract
CPT/HCPCS: 99285; 71045; 93005; 85025; 80048; 87086; 81001; 36415; 84484; Q0162